=== PATIENT | female | born 1960 | race Caucasian/White ===

== ENCOUNTER 2018-04-26 07:51 | Emergency (ER) | payer BC ==
[2015-09-17 08:57] VITALS: Wt 95.3 kg
[~2018-04-26 07:51] MED LIST: ENOX40DI8 SQ; ENOX80DI8 SQ; GABA-503 PO; GABA-549 PO; HYDR12.556 PO; LEVO25TA61 PO; LISI20TA29 PO; OXYC5TAB38 PO; WARF-1 PO
--- NOTE | 2018-04-26 08:37 | ER Report ---
History and Physical Time Seen By MD: 08:20 Hx. of Stated Complaint: PT HAS REDNESS AND SWELLING IN LEFT FOOT. PT REPORTS SHOOTING PAIN WITH AMBULATION. PAIN STARTED YESTERDAY HPI/ROS CHIEF COMPLAINT: left foot pain/swelling HISTORY OF PRESENT ILLNESS: Pt has had 2 d of increased pain jim distal plantar surface of left foot. Painfual jim with activity, improved at rest. Pt has also noted swelling throughout left foot. No known injury, abrasion, foreign body. No proximal calf/knee/thigh swelling or tenderness. Pt has had prior vte left leg 2-3 yrs ago; was on 6 mo anticoagulants. Had stent placed left prox leg. "On her feet' 8 hours/day as a nurse. No cp/sob/ap/f/chills REVIEW OF SYSTEMS: Constitutional: No fever, no chills. Eyes: No discharge. ENT: No sore throat. Cardiovascular: No chest pain, no palpitations. Respiratory: No cough, no shortness of breath. Gastrointestinal: No abdominal pain, no vomiting. Genitourinary: no dysuria Musculoskeletal: No back pain. Skin: No rashes. Neurological: No headache. Remainder of the 14 system rev: Yes Allergies: Coded Allergies: amlodipine (Verified Allergy, Intermediate, 12/16/15) "swell up" bupropion (Verified Allergy, Mild, 12/16/15) hives and rash NSAIDS (Non-Steroidal Anti-Inflamma (Verified Adverse Reaction, Unknown, 04/26/18) CANT TAKE D/T KIDNEY DISEASE Home Meds Active Scripts Prednisone (PREDNISONE) 20 Mg Tablet, 40 MG PO QDAY for 3 Days, #6 TAB Prov:CARLEY MASSEY MD 04/26/18 Reported Medications Gabapentin (GABAPENTIN) 300 Mg Capsule, 600 MG PO TID, CAPSULE 09/17/15 Levothyroxine Sodium (LEVOTHYROXINE SODIUM) 25 Mcg Tablet, 112 MCG PO QDAY 09/16/15 Hydrochlorothiazide (HYDROCHLOROTHIAZIDE) 12.5 Mg Capsule, 1 TAB PO QDAY, CAPSULE 09/16/15 Lisinopril (LISINOPRIL) 20 Mg Tablet, 20 MG PO QDAY, TAB 09/16/15 Discontinued Reported Medications Warfarin Sodium (COUMADIN) 5 Mg Tablet, 5 MG PO QDAY 12/16/15 Enoxaparin Sodium (LOVENOX) 40 Mg/0.4 Ml Disp.syrin, 40 MG SQ 12/16/15 Reviewed Nurses Notes: Yes Hx Smoking: Yes (1.5 YEARS AGO) Smoking Status: Former Smoker Exposure to Second Hand Smoke?: No Hx Substance Use Disorder: No Hx Alcohol Use: Yes Constitutional Vital Sign - Last 24 Hours 04/26/18 04/26/18 04/26/18 04/26/18 08:00 08:00 08:02 08:30 Temp 98.3 Pulse 77 77 69 Resp 18 B/P (MAP) 179/96 161/91 Pulse Ox 90 90 91 93 O2 Delivery Room Air 04/26/18 04/26/18 04/26/18 08:30 09:00 09:00 B/P (MAP) 161/91 (114) 159/89 159/89 (112) Pulse Ox 93 93 93 Physical Exam General Appearance: The patient is alert, has no immediate need for airway protection and no signs of toxicity. Eyes: Pupils equal and round no pallor or injection. ENT, Mouth: Mucous membranes are moist. Respiratory: There are no retractions, lungs are clear to auscultation. Cardiovascular: Regular rate and rhythm. Gastrointestinal: Abdomen is soft and non tender, no masses, bowel sounds normal. Neurological: alert, oriented, nad Skin: Warm and dry, no rashes. Musculoskeletal: LLE; no thigh/popliteal/calf swelling or pain. Mild edema noted throughout foot/ankle. Pt has mild erythema at navicular without abrasion, has ttp jim at left second MTP on plantar aspect without fluctuance, erythema DIFFERENTIAL DIAGNOSIS: After history and physical exam differential diagnosis was considered for cellulitis, fx, vte, edyta, chf, or other emergent etiology of edema Medical Decision Making Data Points Result Diagram: 04/26/18 0835 04/26/18 0835 Laboratory Hematology Test 04/26/18 08:35 Red Blood Count 5.50 M/uL (4.17-5.56) Mean Corpuscular Volume 93.2 fL (80.0-96.0) Mean Corpuscular Hemoglobin 32.0 pg (26.0-33.0) Mean Corpuscular Hemoglobin Concent 34.3 g/dL (32.0-36.0) Red Cell Distribution Width 13.9 % (11.5-14.5) Mean Platelet Volume 7.0 fL (7.2-11.1) Neutrophils (%) (Auto) 58.5 % (39.4-72.5) Lymphocytes (%) (Auto) 30.3 % (17.6-49.6) Monocytes (%) (Auto) 6.4 % (4.1-12.4) Eosinophils (%) (Auto) 4.1 % (0.4-6.7) Basophils (%) (Auto) 0.7 % (0.3-1.4) Nucleated RBC Relative Count (auto) 0.1 /100WBC Neutrophils # (Auto) 4.5 K/uL (2.0-7.4) Lymphocytes # (Auto) 2.3 K/uL (1.3-3.6) Monocytes # (Auto) 0.5 K/uL (0.3-1.0) Eosinophils # (Auto) 0.3 K/uL (0.0-0.5) Basophils # (Auto) 0.1 K/uL (0.0-0.1) Nucleated RBC Absolute Count (auto) 0.00 K/uL Prothrombin Time 12.6 seconds (12.0-14.4) Prothromb Time International Ratio 0.94 Activated Partial Thromboplast Time 27 seconds (23-35) Sodium Level 137 mmol/L (137-145) Potassium Level 4.6 mmol/L (3.5-5.0) Chloride Level 106 mmol/L (98-107) Carbon Dioxide Level 22 mmol/L (22-31) Blood Urea Nitrogen 23 mg/dl (7-18) Creatinine 1.60 mg/dl (0.52-1.04) Glomerular Filtration Rate Calc 33.0 Random Glucose 86 mg/dl (75-110) Calcium Level 8.6 mg/dl (8.4-10.2) Total Bilirubin 0.6 mg/dl (0.2-1.3) Aspartate Amino Transf (AST/SGOT) 35 U/L (0-35) Alanine Aminotransferase (ALT/SGPT) 32 U/L (0-56) Alkaline Phosphatase 67 U/L (0-126) B-Type Natriuretic Peptide 35 pg/ml (0-100) Total Protein 7.0 g/dl (6.3-8.2) Albumin 3.9 g/dl (3.5-5.0) Chemistry Test 11/19/18 08:35 White Blood Count 7.7 k/uL (4.5-11.0) Red Blood Count 5.50 M/uL (4.17-5.56) Hemoglobin 17.6 g/dL (12.0-16.0) Hematocrit 51.3 % (34.0-47.0) Mean Corpuscular Volume 93.2 fL (80.0-96.0) Mean Corpuscular Hemoglobin 32.0 pg (26.0-33.0) Mean Corpuscular Hemoglobin Concent 34.3 g/dL (32.0-36.0) Red Cell Distribution Width 13.9 % (11.5-14.5) Platelet Count 188 K/uL (150-450) Mean Platelet Volume 7.0 fL (7.2-11.1) Neutrophils (%) (Auto) 58.5 % (39.4-72.5) Lymphocytes (%) (Auto) 30.3 % (17.6-49.6) Monocytes (%) (Auto) 6.4 % (4.1-12.4) Eosinophils (%) (Auto) 4.1 % (0.4-6.7) Basophils (%) (Auto) 0.7 % (0.3-1.4) Nucleated RBC Relative Count (auto) 0.1 /100WBC Neutrophils # (Auto) 4.5 K/uL (2.0-7.4) Lymphocytes # (Auto) 2.3 K/uL (1.3-3.6) Monocytes # (Auto) 0.5 K/uL (0.3-1.0) Eosinophils # (Auto) 0.3 K/uL (0.0-0.5) Basophils # (Auto) 0.1 K/uL (0.0-0.1) Nucleated RBC Absolute Count (auto) 0.00 K/uL Prothrombin Time 12.6 seconds (12.0-14.4) Prothromb Time International Ratio 0.94 Activated Partial Thromboplast Time 27 seconds (23-35) Glomerular Filtration Rate Calc 33.0 Calcium Level 8.6 mg/dl (8.4-10.2) Total Bilirubin 0.6 mg/dl (0.2-1.3) Aspartate Amino Transf (AST/SGOT) 35 U/L (0-35) Alanine Aminotransferase (ALT/SGPT) 32 U/L (0-56) Alkaline Phosphatase 67 U/L (0-126) B-Type Natriuretic Peptide 35 pg/ml (0-100) Total Protein 7.0 g/dl (6.3-8.2) Albumin 3.9 g/dl (3.5-5.0) Coagulation Test 04/26/18 08:35 Prothrombin Time 12.6 seconds Prothromb Time International Ratio 0.94 Activated Partial Thromboplast Time 27 seconds ED Course/Re-evaluation ED Course Pt presents with swelling to left foot. She has no known injury; prior dvt but today's us normal. TTP at 4th MTP; there is no e/o injury to skin, no erythema. I considered cellulitis, septic arthritis, fracture; while this is unlikely given lack of rf's and findings, I recommended conservative tx today with rtn iimmediatley if worse. Pt agrees to this plan, will rtn for any worsening symptoms. Decision to Disposition Date: Apr 26, 2018 Decision to Disposition Time: 10:05 Depart Departure Latest Vital Signs Vital Signs Date Time Temp Pulse Resp B/P (MAP) Pulse Ox O2 Delivery O2 Flow Rate FiO2 04/26/18 09:00 159/89 (112) 93 04/26/18 08:02 98.3 69 18 Room Air Impression: Primary Impression: Swelling of left foot Condition: Condition Unchanged Disposition: HOME OR SELF-CARE New Scripts Prednisone (PREDNISONE) 20 Mg Tablet 40 MG PO QDAY for 3 Days, #6 TAB Prov: CARLEY MASSEY MD 04/26/18 Additional Instructions: As we discussed, while I do not find a clear cause of your swelling and it is less likely that it is infection, I would like you to return immediately if worse or tomorrow if not improved, and we will re-evaluate. CARLEY MASSEY MD Apr 26, 2018 08:37
[2018-04-26 08:44] LABS: PLATELET COUNT, AUTOMATED 188 K/uL (150-450)
[2018-04-26 08:53] LABS: INR 0.94
--- NOTE | 2018-04-26 08:58 | RADIOLOGY IMAGING REPORT ---
FACILITY: [facility] PATIENT NAME: Kari Kruse : 1960 MR: [id number] V: [id number] EXAM DATE: ORDERING PHYSICIAN: CARLEY MASSEY TECHNOLOGIST: Location: [facility] - [place] Patient: Kari Kruse : 1960 Visit/Account:[id number] Date of Sevice: 04/26/2018 Technique: FOOT 3 VIEW LEFT HISTORY: left foot pain at 2nd mtp Comparison studies: None FINDINGS: There is no acute fracture. Noted is hallux valgus. There are moderate degenerative changes seen at the first MTP joint. Additionally, dorsal hind and midfoot osteophytosis is present. Mild sw elling of the forefoot is present. IMPRESSION: 1. No acute osseous process. 2. Degenerative changes as described above. Report Dictated By: Riki Amin DO at 04/26/2018 8:53 AM Report E-Signed By: Riki Amin DO at 04/26/2018 8:55 AM WSN:[id number]
[2018-04-26 09:00] VITALS: BP 159/89
--- NOTE | 2018-04-26 09:31 | RADIOLOGY IMAGING REPORT ---
FACILITY: [facility] PATIENT NAME: Kari Kruse : 1960 MR: [id number] V: [id number] EXAM DATE: ORDERING PHYSICIAN: CARLEY MASSEY TECHNOLOGIST: [facility] Patient: Kari Kruse : 1960 Visit/Account:[id number] Date of Sevice: 04/26/2018 VENOUS DOPP LOW LEFT EXTREMITY HISTORY: left leg swelling, hx of prox dvt COMPARISON: 12/12/2015 FINDINGS: Grayscale, duplex and color Doppler interrogation of the left lower extremity deep veins from common femoral vein to proximal calf was completed. The greater saphenous vein in the proximal thigh was alexus luated using similar technique. Common femoral vein - Negative. Femoral vein - Negative. Deep femoral vein - Negative. Popliteal vein - Negative. Visualized deep calf veins - Negative. Popliteal fossa: Negative. Greater saphenous vein in the proximal thigh: Negative. IMPRESSION: Negative left lower extremity venous ultrasound Report Dictated By: Toño Diana at 04/26/2018 9:26 AM Report E-Signed By: Toño Diana at 04/26/2018 9:27 AM WSN:[id number]
[2018-04-26] MEDS ORDERED: PRED20TA6 PO (10:07)
[2018-04-26] MEDS ORDERED: ACETAMINOPHEN 325 MG TAB PO ONE (10:10)
[2018-04-26] MEDS ORDERED: predniSONE 20 MG TAB PO ONE (10:10)
== END 2018-04-26 10:30 | disposition home or self-care (01) ==
LOC: ER 08:01
DX: M79.89 Other specified soft tissue disorders (principal)
CPT/HCPCS: 36415; 73630; 83880; 85025; 85610; 85730; 93971; 99284; J7512; 82040; 82247; 82310; 82374; 82435; 82565; 82947; 84075; 84132; 84155; 84295; 84450; 84460; 84520

== ENCOUNTER → 2018-10-27 | Outpatient (CLI) | payer BC ==
[2015-09-17 08:57] VITALS: BMI 33.9
[~2018-10-27] MED LIST changes: -GABA-503 PO; +GABA-533 PO; +PRED20TA6 PO
--- NOTE | 2018-10-27 16:14 | RADIOLOGY IMAGING REPORT ---
FACILITY: [facility] - [place] PATIENT NAME: Kari Kruse : 1960 MR: [id number] V: [id number] EXAM DATE: ORDERING PHYSICIAN: OLI MARCANO TECHNOLOGIST: Location: [facility] [place] Patient: Kari Kruse : 1960 Visit/Account:[id number] Date of Sevice: 10/27/2018 KIDNEYS EXAMINATION: Renal ultrasound. History: Polycystic kidney disease COMPARISON STUDIES: FINDINGS: Kidneys: Right kidney- the right kidney measures 21.2 x 10.8 x 10.6 cm and contains numerous cysts the largest measuring 11.2 cm in diameter projecting from the lower pole. The resistive index on the right domingo ures 0.75 Left kidney- 22.3 x 10.2 x 11.5 cm and contains numerous cysts the largest measuring 7.3 cm projectin g from the upper pole. The resistive index on the left measures 0.70 Uniform and symmetric blood flow in each kidney by Doppler ultrasound. Hydronephrosis: none Bladder: Prevoid volume 189 mL. Post for residual 3 mm. Bilateral ureteral jets are present Abdominal aorta and IVC: Obscured by bowel gas IMPRESSION: Huge bilateral multicystic kidneys consistent with the history of polycystic kidney disease Report Dictated By: Brianna Deleon MD at 10/27/2018 4:07 PM Report E-Signed By: Brianna Deleon MD at 10/27/2018 4:09 PM WSN:[id number]
== END ==
LOC: US 01:08
PROVIDERS: ATTEND Internal Medicine Nephrology
DX: E03.9 Hypothyroidism, unspecified (principal); Q61.3 Polycystic kidney, unspecified; N18.3 Chronic kidney disease, stage 3 (moderate); D75.1 Secondary polycythemia; R06.09 Other forms of dyspnea; I10 Essential (primary) hypertension
CPT/HCPCS: 76705; 93306